=== PATIENT | female | born 1985 | race African-American/Black ===

== ENCOUNTER 2016-12-29 08:03 | Emergency (ER) | payer MEDICAID ==
[~2016-12-29] VITALS: Ht 182.9 cm; Wt 85.3 kg
[~2016-12-29 08:03] MED LIST: BENA20TA14 PO; CAR125T PO; DIPH25CA39 PO; FOLI1TAB6 PO; SENN8.6T15 PO; WARF6TAB21 PO; [UNRECOGNIZED DRUG - CODE] PO
[2016-12-29] MEDS ORDERED: SODIUM CHLORIDE 0.9% 1,000 ML IV ONE ×4 (09:45→12:04)
[2016-12-29] MEDS ORDERED: ONDANSETRON HCL 4 MG/2 ML VIAL IV ONE (10:15)
[2016-12-29] MEDS ORDERED: MORPHINE SULFATE 4 MG/ML SYRG IV ONE (10:15)
[2016-12-29 11:12] LABS: Hematocrit 22.1 % (36.0-46.0); Hemoglobin 8.1 g/dL (12.2-16.2); Mean Corpuscular Hgb Conc. 36.5 g/dL (32.0-36.0); Mean Corpuscular Volume 90.3 fL (80.0-100.0); Mean Platelet Volume 6.9 fL (7.4-10.4); Platelet Count (auto) 150 10^3/uL (140-450); White Blood Cell 15.6 10^3/uL (4.4-10.8)
[2016-12-29 11:25] LABS: INR 1.54 (0.9-1.15); Partial Thromboplastin Time 41.5 sec (22.64-33.71); Prothrombin Time 16.9 sec (9.37-12.3)
[2016-12-29 11:27] LABS: Urine RBC None Seen /hpf (0 - 4)
[2016-12-29 11:34] LABS: Albumin 3.2 g/dL (3.4-5.0); BUN/Creatinine Ratio 11.5; Bilirubin, Total 14.4 mg/dL (0.2-1.0); Calcium 8.2 mg/dL (8.5-10.1); Total Protein 8.1 g/dL (6.4-8.2)
[2016-12-29 11:41] LABS: Potassium 5.1 mmol/L (3.5-5.1)
[2016-12-29 11:43] LABS: Red Cell Distribution Width 21.7 % (11.6-16.0)
[2016-12-29 11:44] LABS: Metamyelocytes % 0; Myelocytes % 0; Promyelocytes % 0; Reactive Lymphocytes 0
[2016-12-29 11:49] LABS: Urine Blood 2+ /uL (Negative); Urine Glucose Normal (Normal); Urine Hyaline Cast MANY /lpf (0 - 2); Urine Ketone Negative (Negative); Urine Mucus FEW (None Seen); Urine Nitrite Negative (Negative); Urine Squamous Epithelial Cell MOD /hpf (<5); Urine WBC Clumps PRESENT /hpf (None Seen); Urine pH 5.5 (5.0-8.0)
[2016-12-29 11:58] LABS: Urine Bilirubin 2+ (Negative); Urine Color Amber (Yellow)
[2016-12-29] MEDS ORDERED: ENOXAPARIN SOD 100 MG/1 ML SYRINGE SC ONE (12:15)
[2016-12-29] MEDS ORDERED: metroNIDAZOLE 500MG/100ML 100 ML IV ONE (12:15)
[2016-12-29] MEDS ORDERED: HYDROmorphone HCL 2 MG/ML VL IV ONE ×4 (12:15→18:45)
[2016-12-29] MEDS ORDERED: cefTRIAXone 1GM/50ML D5W 50 ML IV ONE (12:15)
[2016-12-29] MEDS ORDERED: diphenhdrAMINE HCL 50 MG/1 ML VL IV ONE ×2 (12:30→16:45)
[2016-12-29 12:42] LABS: Poikilocytosis Moderate
[2016-12-29 12:43] LABS: Platelet Estimate Adequate; Sickle Cells MANY
[2016-12-29 18:31] VITALS: BP 135/78
== END 2016-12-29 18:56 | disposition short-term general hospital (02) ==
LOC: ER 08:03
DX: D57.1 Sickle-cell disease without crisis (principal); R79.89 Other specified abnormal findings of blood chemistry; I50.9 Heart failure, unspecified; K81.0 Acute cholecystitis; Z88.6 Allergy status to analgesic agent; Z88.8 Allergy status to other drugs, medicaments and biological substances; Z79.899 Other long term (current) drug therapy; Z79.01 Long term (current) use of anticoagulants
CPT/HCPCS: 36415; 71010; 74176; 76705; 80053; 81001; 83605; 84484; 85007; 85027; 85610; 85730; 86850; 86870; 86900; 86901; 87040; 96361; 96365; 96368; 96372; 96375; 96376; 99285; J0696; J1170; J1200; J2270; J2405; J3490